=== PATIENT | male | born 1995 | race African-American/Black ===

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

== ENCOUNTER 2017-01-30 06:43 | Emergency (ER) | payer SELFPAY ==
[~2017-01-30] VITALS: Ht 175.3 cm; Wt 76.7 kg
[~2017-01-30 06:43] MED LIST: IBUP-1060 PO; LEVE500T56 PO
[2017-01-30] MEDS ORDERED: LEVE500T56 PO (07:18)
--- NOTE | 2017-01-30 07:18 | PHYS DOC ---
Past Medical History Past Medical History: Seizure Past Surgical History: No Surgical History Additional Past Surgical Histo: UNKNOWN Smoking: Cigarettes, 1 Pack Per Day Alcohol Use: Occasionally Drug Use: Marijuana Adult General Chief Complaint Chief Complaint: SEIZURE HPI HPI Patient is a pleasant 21-year-old -[place] female with a known history of seizure disorder on Keppra who admits he has not taken it for several months secondary to cost. Patient does early this morning was woken up by family when he was having a tonic-clonic seizure. He was recumbent position with any attempted to stand him he had another seizure dropping to the floor. He started his head on the concrete floor sustaining a small contusion and hematoma to the left frontal forehead. He seizure today lasted about 1 minute. It is typical for patient nothing new patient admits he is been on quite with medications and not sleeping and eating well. He does smoke he does drink alcohol he denies any other trauma to his head. He denies any fevers, chills, focal neurologic deficits or weakness at this time. He is not confused it is not heavy soreness in his mouth he just feels very tired. He has these seizures very infrequently and took himself off the medication again because of compliance cost issues Review of Systems Review of Systems Constitutional: Denies fever or chills [] Eyes: Denies change in visual acuity, redness, or eye pain [] HENT: Denies nasal congestion or sore throat [] Respiratory: Denies cough or shortness of breath [] Cardiovascular: No additional information not addressed in HPI [] GI: Denies abdominal pain, nausea, vomiting, bloody stools or diarrhea [] : Denies dysuria or hematuria [] Musculoskeletal: Denies back pain or joint pain [] Integument: Denies rash or skin lesions [] Neurologic: He does complain of a frontal headache over the spot where he struck his forehead on the ground but does not have focal weakness or sensory changes [] All other systems were reviewed and found to be within normal limits, except as documented in this note. Current Medications Current Medications Current Medications Medications (Trade) Dose Ordered Sig/Sandie Start Time Stop Time Status Last Admin Dose Admin Levetiracetam (Keppra) 500 mg BID 01/30/17 08:00 01/30/17 07:16 500 MG Allergies Allergies Allergies Coded Allergies Type Severity Reaction Last Updated Verified No Known Drug Allergies 06/04/15 No Physical Exam Physical Exam Constitutional: Well developed, well nourished, no acute distress, non-toxic appearance. [] HENT: Normocephalic, patient is sustained a small hematoma left frontal forehead measuring 2 cm x 2 cm there is no step-offs no obvious signs of skull fracture no midfacial instability, bilateral external ears normal, oropharynx moist, small bite wounds to the lingual sides of each the tongue no oral exudates, nose normal. [] Eyes: PERRLA, EOMI, conjunctiva normal, no discharge. [] Neck: Normal range of motion, no tenderness, supple, no stridor. [] Cardiovascular:Heart rate regular rhythm, no murmur [] Lungs & Thorax: Bilateral breath sounds clear to auscultation [] Abdomen: Bowel sounds normal, soft, no tenderness, no masses, no pulsatile masses. [] Skin: Warm, dry, no erythema, no rash. [] Back: No tenderness, no CVA tenderness. [] Extremities: No tenderness, no cyanosis, no clubbing, ROM intact, no edema. [] Neurologic: Alert and oriented X 3, normal motor function, normal sensory function, no focal deficits noted. [] Psychologic: Affect normal, judgement normal, mood normal. [] Current Patient Data Vital Signs Vital Signs Date Time Temp Pulse Resp B/P (MAP) Pulse Ox O2 Delivery O2 Flow Rate FiO2 01/30/17 06:55 84 16 136/73 (94) 100 Room Air EKG EKG [] Radiology/Procedures Radiology/Procedures [] [facility] [address] [place], [place] [id number] IMAGING REPORT Signed PATIENT: CORY HUBBARD ACCOUNT: [id number] : 1995 LOCATION: ER AGE: 21 SEX: M EXAM STATUS: REG ER ORD. PHYSICIAN: TACHO COOPER MD REASON: HEAD TRAUMA PROCEDURE: CT HEAD WO CONTRAST CT of the head without contrast, 01/30/2017: History: Seizure, head trauma The ventricles are small compatible with the patient's age. There is no shift of the midline structures. There is no evidence of acute intracranial hemorrhage or mass effect. A scalp hematoma is noted in the left frontal region. No underlying fracture is identified. IMPRESSION: No acute intracranial abnormality is detected. PQRS Compliance Statement: One or more of the following individualized dose reduction techniques were utilized for this examination: 1. Automated exposure control 2. Adjustment of the mA and/or kV according to patient size 3. Use of iterative reconstruction technique DICTATED and SIGNED BY: HAILEY JAMES MD DATE: 01/30/17 0737 CC: TACHO COOPER MD; NO PCP ~ Course & Med Decision Making Course & Med Decision Making Pertinent Labs and Imaging studies reviewed. (See chart for details) []Patient sustained a seizure from medication noncompliance because of the head trauma sustained during the seizure patient will have a CAT scan of the head completed to ensure that there is no skull fracture or epidural hematoma. At this point patient was given oral dose of Keppra 500 mg to begin his treatment. Patient was also given a coupon to make his Keppra more affordable and referral to neurologist for continued management Patient's CAT scan results returned completed at 7:50 AM patient is resting With no seizure activity at this time. Patient I talked about medication compliance to help improve his symptomatology protect him from secondary injuries from this continue seizure disorder Impression: Seizure disorder with noncompliance forehead contusion discharge: I've spoken with the patient and/or caregivers. I've explained the patient's condition, diagnosis and treatment plan based on information available to me at this time. I've answered the patient's and/or caregivers questions and addressed any concerns. The patient and/or caregivers have a good understanding the patient's diagnosis, condition and treatment plan as can be expected at this point. Vital signs have been stabilized. The patient's condition is stable for discharge from the emergency department. The patient will pursue further outpatient evaluation with her primary care provider or other designated consulting physician as outlined in the discharge instructions. Patient and/or caregivers are agreeable to this plan of care and follow-up instructions have been explained in detail. The patient and/or caregivers have received these instructions in written format and expressed understanding of these discharge instructions. The patient and her caregivers are aware that if any significant change in condition or worsening of symptoms should prompt him to immediately return to this of the closest emergency department. If an emergent department is not readily available I would encourage him to call 911Toni Prather Disclaimer Crescencio Disclaimer This electronic medical record was generated, in whole or in part, using a voice recognition dictation system. Departure Departure Impression: Primary Impression: Seizure Disposition: 01 HOME, SELF-CARE Condition: IMPROVED Referrals: NO PCP (PCP) Patient Instructions: Seizure, Adult Additional Instructions: discharge: I've spoken with the patient and/or caregivers. I've explained the patient's condition, diagnosis and treatment plan based on information available to me at this time. I've answered the patient's and/or caregivers questions and addressed any concerns. The patient and/or caregivers have a good understanding the patient's diagnosis, condition and treatment plan as can be expected at this point. Vital signs have been stabilized. The patient's condition is stable for discharge from the emergency department. The patient will pursue further outpatient evaluation with her primary care provider or other designated consulting physician as outlined in the discharge instructions. Patient and/or caregivers are agreeable to this plan of care and follow-up instructions have been explained in detail. The patient and/or caregivers have received these instructions in written format and expressed understanding of these discharge instructions. The patient and her caregivers are aware that if any significant change in condition or worsening of symptoms should prompt him to immediately return to this of the closest emergency department. If an emergent department is not readily available I would encourage him to call 911. His follow-up with your neurologist for continued management of your seizure disorder. Noncompliance can lead to increased seizures increased risk for permanent disability and chemistry her brain as well as injuries sustained when he fall. Follow up: In addition patient is asked to followup with their primary doctor, within a week for followup examination and to address patient's ongoing medical conditions. Because patient does not have a regular medical doctor, a local physician Resource Sheet will be provided to establish care primary care. Scripts Levetiracetam (KEPPRA) 500 Mg Tablet 1 TAB PO BID, #180 TAB 3 Refills Prov: TACHO COOPER MD 01/30/17 TACHO COOPER MD Jan 30, 2017 07:18
--- NOTE | 2017-01-30 07:43 | RAD ---
CT of the head without contrast, 01/30/2017: History: Seizure, head trauma The ventricles are small compatible with the patient's age. There is no shift of the midline structures. There is no evidence of acute intracranial hemorrhage or mass effect. A scalp hematoma is noted in the left frontal region. No underlying fracture is identified. IMPRESSION: No acute intracranial abnormality is detected. PQRS Compliance Statement: One or more of the following individualized dose reduction techniques were utilized for this examination: 1. Automated exposure control 2. Adjustment of the mA and/or kV according to patient size 3. Use of iterative reconstruction technique
[2017-01-30] MEDS ORDERED: levETIRAcetam 500 MG TABLET PO SCH (08:00)
[2017-01-30 08:03] VITALS: BP 120/74
== END 2017-01-30 08:05 | disposition home or self-care (01) ==
LOC: ER 06:43
DX: R56.9 Unspecified convulsions (principal); S00.03XA Contusion of scalp, initial encounter; G40.909 Epilepsy, unspecified, not intractable, without status epilepticus; F17.210 Nicotine dependence, cigarettes, uncomplicated; Z91.14 Patient's other noncompliance with medication regimen; W18.09XA Striking against other object with subsequent fall, initial encounter; Y93.89 Activity, other specified; Y99.8 Other external cause status; Y92.89 Other specified places as the place of occurrence of the external cause
CPT/HCPCS: 70450; 99284-25

== ENCOUNTER 2019-05-20 11:36 | Emergency (ER) | payer SELFPAY ==
[~2019-05-20] VITALS: Ht 177.8 cm; Wt 80.4 kg
[2019-05-20 11:54] VITALS: BP 159/100
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
== END 2019-05-20 12:25 | disposition left against medical advice (07) ==
LOC: ER 11:36
DX: K08.89 Other specified disorders of teeth and supporting structures (principal); R68.84 Jaw pain; F12.90 Cannabis use, unspecified, uncomplicated
CPT/HCPCS: 99281

== ENCOUNTER 2020-12-06 07:00 | Emergency (ER) | payer SELFPAY ==
[~2020-12-06] VITALS: Ht 175.3 cm; Wt 77.2 kg
[2020-12-06 07:00] VITALS: BP 125/69
[2020-12-06] MEDS ORDERED: LEVE500T56 PO (07:36)
--- NOTE | 2020-12-06 07:37 | PHYS DOC ---
Past Medical History Past Medical History: No Pertinent History, Seizure Past Surgical History: Other Additional Past Surgical Histo: LEFT LEG AND LEFT SIDED JAW Smoking Status: Current Every Day Smoker Alcohol Use: Occasionally Drug Use: Marijuana General Adult EDM: Chief Complaint: SEIZURE HPI: HPI: Patient is a 25 year old male who presents with a presumed seizure. Family heard him banging into maravilla and then found him slightly confused and sleepy. He is slowly improved since then. He has a history of seizures since 6 grade. Had been on Keppra, but has been off of it for the last month as he does not currently have a primary care doctor. He denies significant drug/alcohol use. Drinks approximately 1 time per week. Was not drinking yesterday or last night. Has been sleeping okay. Denies stressful situations. No recent fevers or chills. Has been feeling in his usual state of health. No other medications. He did bite the right side of his tongue during his seizure this morning. No incontinence. No injuries. Last seizure was in June of this year. Review of Systems: Review of Systems: Constitutional: Denies fever or chills. [] Eyes: Denies change in visual acuity. [] HENT: Reported right-sided tongue biting denies nasal congestion or sore throat. [] Respiratory: Denies cough or shortness of breath. [] Cardiovascular: Denies chest pain or edema. [] GI: Denies abdominal pain, nausea, vomiting, bloody stools or diarrhea. [] : Denies dysuria. [] Musculoskeletal: Denies back pain or joint pain. [] Integument: Denies rash. [] Neurologic: Reported seizure. Denies headache, focal weakness or sensory changes. [] Endocrine: Denies polyuria or polydipsia. [] Lymphatic: Denies swollen glands. [] Psychiatric: Denies depression or anxiety. [] Heart Score: C/O Chest Pain: No Risk Factors: Risk Factors: DM, Current or recent (<one month) smoker, HTN, HLP, family history of CAD, obesity. Risk Scores: Score 0 - 3: 2.5% MACE over next 6 weeks - Discharge Home Score 4 - 6: 20.3% MACE over next 6 weeks - Admit for Clinical Observation Score 7 - 10: 72.7% MACE over next 6 weeks - Early Invasive Strategies Allergies: Allergies: Allergies Coded Allergies Type Severity Reaction Last Updated Verified No Known Drug Allergies 06/04/15 No Physical Exam: PE: Constitutional: Well developed, well nourished, no acute distress, non-toxic appearance. [] HENT: No external signs of trauma. Small right sided tongue bite. [] Eyes: PERRLA, EOMI, conjunctiva normal, no discharge. [] Neck: Normal range of motion, no tenderness, supple, no stridor. [] Cardiovascular:Heart rate regular rhythm, no murmur [] Lungs & Thorax: Bilateral breath sounds clear to auscultation [] Abdomen: Bowel sounds normal, soft, no tenderness, no masses, no pulsatile masses. [] Skin: Warm, dry, no erythema, no rash. [] Extremities: No tenderness, no cyanosis, no clubbing, ROM intact, no edema. [] Neurologic: Alert, oriented to person, place, time. Face is symmetric. Speech is normal. Cranial nerves III-XII intact. 5/5 strength in bilateral upper and lower extremities in all dermatomes. No dysmetria with [id number] or uril-ro-vedy testing. Gait is stable. Psychologic: Affect normal, judgement normal, mood normal. [] Current Patient Data: Vital Signs: Vital Signs Date Time Temp Pulse Resp B/P (MAP) Pulse Ox O2 Delivery O2 Flow Rate FiO2 12/06/20 07:00 98.5 94 19 125/69 (87) 98 Room Air 98.5 EKG: EKG: [] Radiology/Procedures: Radiology/Procedures: [] Course & Med Decision Making: Course & Med Decision Making Pertinent Labs and Imaging studies reviewed. (See chart for details) Patient a 25-year-old male with established history of seizures since 6 grade who presents with a reported seizure just prior to arrival in the setting of not having Keppra for the past month. Is alert, oriented, with an intact neurologic examination currently. Vital s igns are normal. He is back to his mental status baseline. I will give him a 1 month prescription for Keppra, and give him a phone number to attempt to establish with a primary care physician. I counseled him on not driving for a minimum of 6 months following the seizure. He voices understanding. Crescencio Disclaimer: Crescencio Disclaimer: This electronic medical record was generated, in whole or in part, using a voice recognition dictation system. Departure Departure Impression: Primary Impression: Seizure Disposition: HOME / SELF CARE / HOMELESS Condition: STABLE Referrals: NO PCP (PCP) Additional Instructions: Since you do not have a PCP, please call the number for the [facility] at [phone]. Please take your Keppra prescription. Please try to call the number above to establish with a primary care doctor. If this does not work please reach out to other primary care doctors near where you live to establish care. If you are having recurrent seizures, or new/concerning symptoms such as fever, chills, headache, neck pain, confusion please return to the emergency department for reevaluation. You cannot drive for the next 6 months following the seizure. Scripts Levetiracetam (KEPPRA) 500 Mg Tablet 1 TAB PO BID for seizure for 30 Days, #60 TAB 0 Refills Prov: BARRY THURMAN MD 12/06/20 BARRY THURMAN MD Dec 06, 2020 07:37
== END 2020-12-06 08:00 | disposition home or self-care (01) ==
LOC: ER 07:00
DX: R56.9 Unspecified convulsions (principal); F17.200 Nicotine dependence, unspecified, uncomplicated
CPT/HCPCS: 99284

== ENCOUNTER 2020-12-06 12:55 | Emergency (ER) | payer SELFPAY ==
[~2020-12-06] VITALS: Ht 177.8 cm; Wt 80.0 kg
[2020-12-06 12:59] VITALS: BP 147/68
[2020-12-06] MEDS ORDERED: levETIRAcetam 1,000 MG in IV DEXTROSE 5% 100ML 100 ML IV ONE (13:15)
--- NOTE | 2020-12-06 13:38 | PHYS DOC ---
Past Medical History Past Medical History: No Pertinent History, Seizure Past Surgical History: Other Additional Past Surgical Histo: LEFT LEG AND LEFT SIDED JAW Smoking Status: Light Tobacco Smoker Alcohol Use: Occasionally Drug Use: Marijuana General Adult EDM: Chief Complaint: SEIZURE HPI: HPI: Patient is a 25 year old male with history of epilepsy who presents with a second seizure today. Seen here earlier today. He has been off of Keppra for over a month. He was discharged earlier with a renewal for his Keppra prescription, but had not picked it up yet. Seizure lasted reported 1 minute. He did have additional tongue biting. He is slowly returning to his baseline, but still feels sleepy at this time. Denies any injuries from his seizure. Review of Systems: Review of Systems: Constitutional: Denies fever or chills. [] Eyes: Denies change in visual acuity. [] HENT: Reports tongue biting. Denies nasal congestion or sore throat. [] Respiratory: Denies cough or shortness of breath. [] Cardiovascular: Denies chest pain or edema. [] GI: Denies abdominal pain, nausea, vomiting, bloody stools or diarrhea. [] : Denies dysuria. [] Musculoskeletal: Denies back pain or joint pain. [] Integument: Denies rash. [] Neurologic: Reports seizure. Denies headache, focal weakness or sensory changes. [] Endocrine: Denies polyuria or polydipsia. [] Lymphatic: Denies swollen glands. [] Psychiatric: Denies depression or anxiety. [] Heart Score: C/O Chest Pain: No Risk Factors: Risk Factors: DM, Current or recent (<one month) smoker, HTN, HLP, family histo ry of CAD, obesity. Risk Scores: Score 0 - 3: 2.5% MACE over next 6 weeks - Discharge Home Score 4 - 6: 20.3% MACE over next 6 weeks - Admit for Clinical Observation Score 7 - 10: 72.7% MACE over next 6 weeks - Early Invasive Strategies Current Medications: Current Medications Medications (Trade) Dose Ordered Sig/Sandie Start Time Stop Time Status Last Admin Dose Admin Levetiracetam 1000 mg/Dextrose 110 ml @ 440 mls/hr 1X ONCE 12/06/20 13:15 12/06/20 13:29 DC Allergies: Allergies: Allergies Coded Allergies Type Severity Reaction Last Updated Verified No Known Drug Allergies 06/04/15 No Physical Exam: PE: Constitutional: Well developed, well nourished, no acute distress, non-toxic appearance. [] HENT: Normocephalic, bilateral lateral tongue biting evident Eyes: PERRLA, EOMI, conjunctiva normal, no discharge. [] Neck: Normal range of motion, no tenderness, supple, no stridor. [] Cardiovascular:Heart rate regular rhythm, no murmur [] Lungs & Thorax: Bilateral breath sounds clear to auscultation [] Abdomen: Bowel sounds normal, soft, no tenderness, no masses, no pulsatile masses. [] Skin: Warm, dry, no erythema, no rash. [] Back: No tenderness, no CVA tenderness. [] Extremities: No tenderness, no cyanosis, no clubbing, ROM intact, no edema. [] Neurologic: Alert, oriented to person, place, time. Face is symmetric. Speech is normal. Cranial nerves III-XII intact. 5/5 strength in bilateral upper and lower extremities in all dermatomes. No dysmetria with [id number] or [id number] testing. Gait is stable. Psychologic: Affect normal, judgement normal, mood normal. [] Current Patient Data: Vital Signs: Vital Signs Date Time Temp Pulse Resp B/P (MAP) Pulse Ox O2 Delivery O2 Flow Rate FiO2 12/06/20 12:59 99.1 100 16 147/68 (94) 97 Room Air 99.1 EKG: EKG: [] Radiology/Procedures: Radiology/Procedures: [] Course & Med Decision Making: Course & Med Decision Making Pertinent Labs and Imaging studies reviewed. (See chart for details) Patient a 25-year-old male who presents for his second seizure today. Seen earlier today here and was well-appearing and had recovered from his postictal phase quickly. He was prescribed Keppra 500 mg twice daily, which he had previously been taking but had recently been noncompliant with. He had not picked up the prescription prior to his presentation. On arrival is slightly somnolent, but with an intact neuro exam otherwise. Returned quickly to his baseline. Given 1000 mg Keppra load IV. Labs do not show a causative reason for his seizure. Mild elevation in his creatinine to 1.4. Given a liter of IV fluids. He has remained at his baseline has not had a recurrent seizure after several hours of observation. Feel he is safe for discharge. Keppra waiting for him at the pharmacy. I have given him the number of a PCP to attempt to establish care with. Crescencio Disclaimer: Crescencio Disclaimer: This electronic medical record was generated, in whole or in part, using a voice recognition dictation system. Departure Departure Impression: Primary Impression: Seizure Disposition: HOME / SELF CARE / HOMELESS Condition: STABLE Referrals: NO PCP (PCP) Additional Instructions: Since you do not have a PCP, please call the number for the [facility] at [phone]. Please olive picker your Keppra from the pharmacy. Please take as prescribed. Please do not use any drugs or alcohol. Please try to sleep at least 8 hours daily. All of these things will help to prevent you from having another seizure. BARRY THURMAN MD Dec 06, 2020 13:38
[2020-12-06 16:09] LABS: CALCIUM 8.9 mg/dL (8.5-10.1); CREATININE 1.4 mg/dL (0.7-1.3); POTASSIUM 3.9 mmol/L (3.5-5.1)
[2020-12-06] MEDS ORDERED: IV NORMAL SALINE 1000ML BAG 1,000 ML IV ONE (16:15)
== END 2020-12-06 19:20 | disposition home or self-care (01) ==
LOC: ER 12:55
DX: R56.9 Unspecified convulsions (principal); Z72.0 Tobacco use
CPT/HCPCS: 36415; 80048; 96361; 96365; 99284; J1953; J7030; J7060

== ENCOUNTER 2021-06-21 04:16 | Emergency (ER) | payer SELFPAY ==
[~2021-06-21] VITALS: Ht 175.3 cm; Wt 77.2 kg
[2021-06-21] MEDS ORDERED: levETIRAcetam 500 MG TABLET PO SCH (04:29)
[2021-06-21 04:47] VITALS: BP 135/67
--- NOTE | 2021-06-21 05:21 | PHYS DOC ---
Past Medical History Past Medical History: No Pertinent History, Seizure Past Surgical History: No Surgical History Additional Past Surgical Histo: LEFT LEG AND LEFT SIDED JAW Smoking Status: Never Smoker Alcohol Use: Occasionally Drug Use: Marijuana Adult General Chief Complaint Chief Complaint: SEIZURE HPI HPI 26-year-old male with longstanding seizure disorder on 500 mg of Keppra twice daily presents for evaluation of a breakthrough seizure in bed prior to arrival. Lasted between 5 and 10 minutes. Did not hit or hurt anything as he remained in bed during the episode. Episode was witnessed. Patient was slightly postictal on EMS arrival but improved and is oriented x4, moving all extremities equally and appropriately interactive on initial evaluation here. Blood glucose is 130s. Vital signs are appropriate here. Patient tells me that he forgot to take his Keppra before bedtime. Did bite his tongue but denies pain there or anywhere else. Review of Systems Review of Systems A 12 point review of systems was completed and was negative except where noted in HPI above. Current Medications Current Medications Current Medications Medications (Trade) Dose Ordered Sig/Sandie Start Time Stop Time Status Last Admin Dose Admin Levetiracetam (Keppra) 1,000 mg BID 06/21/21 04:29 06/21/21 04:29 1,000 MG Allergies Allergies Allergies Coded Allergies Type Severity Reaction Last Updated Verified iodine Allergy Unknown 06/21/21 Yes Physical Exam Physical Exam 26-year-old male appearing nontoxic and in no acute distress. Head is normocephalic and atraumatic. Neck is supple and nontender. Oropharynx is moist. Lungs are clear to auscultation at all stations. There is a normal S1 and S2 without rubs or gallops and capillary refill is appropriate, less than 2 seconds globally. Abdomen is soft, nontender and nondistended. Skin is warm and dry without cyanosis, clubbing or edema. Psychiatrically, the patient demonstrates appropriate mood and affect and is alert. Neurologically, cranial nerves II through XII are intact and there are no lateralizing deficits seen. Speech is normal. Language is normal. Coordination is normal. There is no dysmetria finger-nose or [id number] bilaterally. Strength is 5 out of 5 in all joints of bilateral upper and lower extremities. Sensation is intact to light touch in bilateral upper and lower extremities. Patient ambulates with a narrow, steady gait here in the emergency department and is alert and oriented x4. Current Patient Data Vital Signs Vital Signs Date Time Temp Pulse Resp B/P (MAP) Pulse Ox O2 Delivery O2 Flow Rate FiO2 06/21/21 04:19 98.1 97 18 137/84 (101) 96 Room Air 98.1 Lab Values Laboratory Tests Test 06/21/21 04:23 Glucose (Fingerstick) 130 mg/dL (70-99) H EKG EKG [] Radiology/Procedures Radiology/Procedures [] Course & Med Decision Making Course & Med Decision Making Patient given 1000 mg of Keppra orally and observed for more than an hour here in the emergency department. He remains at his neurocognitive baseline with a nonfocal neurologic exam on serial reassessments. Ambulatory with a narrow, steady, non-ataxic gait here in the emergency department. Oriented x4. Will discharge home to follow-up closely with his neurologist. He understands that if he feels worse instead of better, has recurrent symptoms or develops other new symptoms of concern that he should return to the emergency department immediately for reevaluation. All questions are answered. Dragon Disclaimer Dragon Disclaimer This electronic medical record was generated, in whole or in part, using a voice recognition dictation system. Departure Departure Impression: Primary Impression: Other seizures Disposition: 01 HOME / SELF CARE / HOMELESS Condition: IMPROVED Patient Instructions: Seizure, Adult Additional Instructions: Follow-up very closely with your neurologist in the next 1 to 2 weeks for a reevaluation of your symptoms and to discussion of next best steps in care. Please do not forget to take your Keppra to prevent breakthrough seizures. You should not drive until cleared to resume doing so by your neurologist. Return to the emergency department right away for worsening symptoms of any kind or with any other new symptoms of concern. KEITH FOWLER MD Jun 21, 2021 05:21
== END 2021-06-21 05:25 | disposition home or self-care (01) ==
LOC: ER 04:16
DX: G40.909 Epilepsy, unspecified, not intractable, without status epilepticus (principal); Z88.8 Allergy status to other drugs, medicaments and biological substances
CPT/HCPCS: 82962; 99283